=== PATIENT | male | born 1985 | race Two or more races ===

== ENCOUNTER → 2016-12-10 | Outpatient (CLI) | payer BC ==
--- NOTE | ~2016-12-10 | US5 ---
[facility] A Service of [facility] RADIOLOGY TEXT RESULTS PATIENT: ARIN DIAS LOCATION: [facility] : 81 UNIT #: [id number] AGE: [address]: YANELY ORTEGA APRN SEX: M ORDER DR: [id number] [place], [place] [address] [id number] O MR#: [id number] Acc #: [id number] NAME: ARIN DIAS : 1985 SEX: M STUDY DATE/TIME: 12/10/2016 7:20 UNIT: CGUS ROOM: STUDY DESCRIPTION: US Abdominal Complete Attending Physician: Yanely Ortega Aprn Referring Physician: Yanely Ortega Aprn Ordering Physician: Yanely Ortega Aprn Primary Care Physician: Marquis Barbour M.D. MEDICAL IMAGING REPORT This report is preliminary unless electronic signature is present EXAM Abdominal ultrasound INDICATIONS Generalized abdominal pain for the past week with diarrhea for the past several months. PROCEDURE Wilhelm-scale and Doppler imaging of the abdomen. COMPARISON None. FINDINGS Submitted images of the abdominal aorta and inferior vena cava unremarkable. Visualized portions of pancreas are unremarkable. Liver has diffusely increased echotexture. Liver measures 19.1 cm. No liver mass seen on submitted images. Right kidney measures 12.6 cm and is unremarkable. Unremarkable gallbladder. Common duct measures 5 mm. Left kidney measures 11.4 cm. Spleen measures 11.7 cm. IMPRESSION 1. Borderline hepatomegaly with increased liver echotexture in keeping with steatosis. 2. Common duct is minimally prominent for the patient's age. Correlate with laboratory values. Dictated by... Ishan Echeverria M.D. [facility] A Service of [facility] RADIOLOGY TEXT RESULTS PATIENT: ARIN DIAS LOCATION: [facility] : 81 UNIT #: [id number] AGE: [address]: YANELY ORTEGA APRN SEX: M ORDER DR: THIS IS AN ELECTRONICALLY VERIFIED REPORT Ishan Echeverria M.D. at 12/12/2016 1:54 PM OJ/temo TD: 12/10/2016 11:33 JOB #: [id number] MEDICAL IMAGING REPORT Page 1 of 1 COPY
--- NOTE | ~2016-12-10 | MR18 ---
[facility] A Service of [facility] RADIOLOGY TEXT RESULTS PATIENT: ARIN DIAS LOCATION: [facility] : 81 UNIT #: [id number] AGE: [address]: YANELY ORTEGA APRN SEX: M ORDER DR: [id number] [facility] [address] [place], [place] [address] [id number] O MR#: [id number] Acc #: [id number] NAME: ARIN DIAS : 1985 SEX: M STUDY DATE/TIME: 12/10/2016 8:36 UNIT: US ROOM: STUDY DESCRIPTION: MR Brain Wo Contrast Attending Physician: Yanely Ortega Aprn Referring Physician: Yanely Ortega Aprn Ordering Physician: Yanely Ortega Aprn Primary Care Physician: Marquis Barbour M.D. MRI CENTER REPORT This report is preliminary unless electronic signature is present. EXAM Brain MRI. HISTORY Posterior headaches for the past week accompanied by left facial numbness and bilateral hand numbness. TECHNIQUE Multiplanar imaging of the brain was performed with short and long TR. FINDINGS On diffusion weighted images, there is no evidence of a recent infarct. The routine brain images show normal ventricular size. No white matter signal abnormalities are seen. There is no evidence of mass, hemorrhage, or edema. Extraaxial structures are remarkable for mild mucosal thickening in the ethmoid air cells, right worse than left. IMPRESSION Chronic inflammatory changes in the ethmoid air cells, right greater than left. Otherwise negative. Dictated by... Raphael Chilel M.D. THIS IS AN ELECTRONICALLY VERIFIED REPORT Raphale Chilel M.D. at 12/10/2016 4:10 PM RLF/john TD: 12/10/2016 13:34 JOB #: [id number] [facility] A Service of [facility] RADIOLOGY TEXT RESULTS PATIENT: ARIN DIAS LOCATION: [facility] : 81 UNIT #: [id number] AGE: [address]: YANELY ORTEGA APRN SEX: M ORDER DR: MRI CENTER REPORT Page 1 of 1 COPY
== END | disposition home or self-care (01) ==
LOC: CGUS 06:58
DX: R10.11 Right upper quadrant pain (principal); R51 Headache; R42 Dizziness and giddiness; R16.0 Hepatomegaly, not elsewhere classified
CPT/HCPCS: 70551; 76700